=== PATIENT | female | born 1995 | race Caucasian/White ===

== ENCOUNTER 2023-07-12 06:50 | Inpatient (IN) | payer BC ==
[~2023-07-12 06:50] MED LIST: Bupivacaine 0.25% 10 ML SDV ONE
[2023-07-12] MEDS ORDERED: Calcium Carbonate 500 MG Tab.Chew PO PRN (07:37)
[2023-07-12] MEDS ORDERED: Lidocaine 1% 50 ML MDV INJECT PRN (07:37)
[2023-07-12] MEDS ORDERED: Nalbuphine 10 MG/ML Syringe IVPUSH PRN (07:37)
[2023-07-12] MEDS ORDERED: Ondansetron 4 MG/2 ML SDV IVPUSH PRN (07:37)
[2023-07-12] MEDS ORDERED: Oxytocin/Lactated Ringers 30 UNIT/500 ML BAG IV SCH (07:45)
[2023-07-12 07:58] LABS: BASOPHILS PERCENT AUTO 0.4 % (0.0-1.0); EOSINOPHILS ABSOLUTE AUTO 0.2 K/mm3 (0.0-0.4); EOSINOPHILS PERCENT AUTO 2.3 % (0.0-6.0); HEMATOCRIT 38.3 % (37.0-47.0); HEMOGLOBIN 12.8 gm/dl (12.0-16.0); IMMATURE GRAN ABSOLUTE AUTO 0.02 K/mm3 (0.00-0.05); IMMATURE GRAN PERCENT AUTO 0.3 % (0.0-0.4); LYMPHOCYTES ABSOLUTE AUTO 1.9 K/mm3 (1.0-4.8); LYMPHOCYTES PERCENT AUTO 27.7 % (24.0-44.0); MEAN CORPUSCULAR HEMOGLOBIN 28.8 pg (28.0-32.0); MEAN CORPUSCULAR HGB CONC 33.4 g/dl (32.0-36.0); MEAN CORPUSCULAR VOLUME 86.1 fl (83.0-99.0); MONOCYTES ABSOLUTE AUTO 0.5 K/mm3 (0.0-0.8); MONOCYTES PERCENT AUTO 6.7 % (0.0-8.0); NEUTROPHILS ABSOLUTE AUTO 4.3 K/mm3 (1.8-7.7); NEUTROPHILS PERCENT AUTO 62.6 % (41.0-71.0); PLATELET COUNT,PLT 220 K/mm3 (150-400); RED BLOOD CELL COUNT 4.45 M/mm3 (4.10-5.30); WHITE BLOOD CELL COUNT,WBC 6.83 K/mm3 (3.9-11.3)
[2023-07-12] MEDS ORDERED: diphenhydrAMINE 50 MG/ML SDV IVPUSH PRN (07:59)
[2023-07-12] MEDS ORDERED: ePHEDrine 50 MG/ML SDV IVPUSH PRN (07:59)
[2023-07-12] MEDS: Ampicillin 2 GM in Sodium Chloride 0.9% 100 ML IV ONE (08:12)
[2023-07-12] MEDS: Lactated Ringers 1,000 ML IV SCH (08:13)
[2023-07-12] MEDS: Oxytocin/Lactated Ringers 30 UNIT/500 ML BAG IV SCH (08:43)
[2023-07-12] MEDS: Ampicillin 1 GM in Sodium Chloride 0.9% 100 ML IV SCH (12:00)
[2023-07-12] MEDS: Bupivacaine/fentaNYL/NS 100 ML Bag EPIDUR PRN (15:39)
[2023-07-12] MEDS: fentaNYL 100 MCG/2 ML SDV EPIDUR PRN (15:39)
[2023-07-12] MEDS ORDERED: Acetaminophen 325 MG Tab PO PRN (20:36)
[2023-07-12] MEDS: Benzocaine/Menthol 20%-0.5% Spray 78 GM Cannister TOP PRN (22:27)
[2023-07-12] MEDS: Witch Hazel Medicated Pads 40/Jar TOP PRN (22:27)
[2023-07-12] MEDS: Ibuprofen 600 MG Tab PO SCH (23:36)
== END 2023-07-14 14:05 | disposition home or self-care (01) | DRG 560 ==
LOC: JD.OB 06:50 → OBSVTOIN 07:38 → JD.OB 07:38
PROVIDERS: ADMIT Obstetrics & Gynecology; ATTEND Obstetrics & Gynecology
PROC: 10E0XZZ Delivery of Products of Conception, External Approach (ICD-10-PCS; principal; 2023-07-12)
PROC: 10907ZC Drainage of Amniotic Fluid, Therapeutic from Products of Conception, Via Natural or Artificial Opening (ICD-10-PCS; 2023-07-12)
PROC: 3E033VJ Introduction of Other Hormone into Peripheral Vein, Percutaneous Approach (ICD-10-PCS; 2023-07-12)
PROC: 0KQM0ZZ Repair Perineum Muscle, Open Approach (ICD-10-PCS; 2023-07-12)
PROC: 3E0R3BZ Introduction of Anesthetic Agent into Spinal Canal, Percutaneous Approach (ICD-10-PCS; 2023-07-12)
PROC: 00HU33Z Insertion of Infusion Device into Spinal Canal, Percutaneous Approach (ICD-10-PCS; 2023-07-12)
DX: O99.824 Streptococcus B carrier state complicating childbirth (principal); Z37.0 Single live birth; O70.1 Second degree perineal laceration during delivery; Z3A.39 39 weeks gestation of pregnancy
CPT/HCPCS: 36415; 51702; 59025; 59409; 85025; 86592; A9270-GY; J0290; J0665; J3010; J3490; J7120; J7999